=== PATIENT | female | born 1950 | race Caucasian/White ===

== ENCOUNTER 2018-06-25 11:46 | Day surgery (SDC) | payer MEDICARE ==
[~2018-06-25] VITALS: Ht 167.6 cm; Wt 78.5 kg
[~2018-06-25 11:46] MED LIST: KRILL OIL500 MG; LEVSOD88
[2018-06-25] MEDS ORDERED: HYDR1TAB94 PO (12:27)
== END 2018-06-25 16:30 | disposition home or self-care (01) ==
LOC: ORSCSDS 11:46
PROVIDERS: Orthopaedic Surgery
PROC: 0PSJ34Z Reposition Left Radius with Internal Fixation Device, Percutaneous Approach (ICD-10-PCS; principal; 2018-06-25 13:15)
DX: S52.552A Other extraarticular fracture of lower end of left radius, initial encounter for closed fracture (principal); E03.9 Hypothyroidism, unspecified; Z87.891 Personal history of nicotine dependence; Z79.899 Other long term (current) drug therapy
CPT/HCPCS: J0690; J2250; J3010; J7120

== ENCOUNTER 2023-08-12 07:38 | Day surgery (SDC) | payer OTHER ==
[~2023-08-12] VITALS: Ht 170.2 cm; Wt 81.6 kg
[~2023-08-12 07:38] MED LIST changes: +HYDR1TAB94 PO
[2023-08-12] MEDS ORDERED: EUTHYROX100 MC1 PO (08:10)
[2023-08-12] MEDS ORDERED: Prinivil10 MG PO (08:10)
[2023-08-12] MEDS ORDERED: ROSUVASTATIN CA10 MG PO (08:11)
--- NOTE | 2023-08-12 08:19 | NUR ---
08/12/23 0819 Keren Bills 1 DROP OF TETRACAINE ADMINISTERED TO THE R EYE AT 0815, PLEDGET PLACED AT 0816 BY [facility].BLANCAW. PT HANSEL WELL
[2023-08-12 09:09] VITALS: BP 104/64
--- NOTE | 2023-08-12 09:25 | NUR ---
08/12/23 0925 ÓSCAR SERRANO IV REMOVED. CANNULA INTACT. HANSEL WELL. WNL.
== END 2023-08-12 09:24 | disposition home or self-care (01) ==
LOC: ORSCSDS 07:38
PROVIDERS: Student in an Organized Health Care Education/Training Program
PROC: 08RJ3JZ Replacement of Right Lens with Synthetic Substitute, Percutaneous Approach (ICD-10-PCS; principal; 2023-08-12 09:00)
DX: H25.11 Age-related nuclear cataract, right eye (principal); Z96.1 Presence of intraocular lens; I10 Essential (primary) hypertension; E03.9 Hypothyroidism, unspecified; E78.5 Hyperlipidemia, unspecified; Z87.891 Personal history of nicotine dependence; Z79.899 Other long term (current) drug therapy
CPT/HCPCS: A9270; J2250; J3010; J7040; V2632